=== PATIENT | female | born 1965 | race Caucasian/White ===

== ENCOUNTER 2021-02-22 17:23 | Emergency (ER) | payer BC ==
[2021-02-22] MEDS ORDERED: Sodium Chloride 0.9% 10 ML Syringe FLUSH PRN (17:44)
[2021-02-22] MEDS ORDERED: Metoprolol Tartrate 5 MG/5 ML SDV IVPUSH ONE (17:44)
[2021-02-22] MEDS ORDERED: Famotidine 20 MG/2 ML SDV IVPUSH ONE (17:44)
--- NOTE | 2021-02-22 17:44 | EDM.PDOC ---
ED HPI GENERAL MEDICAL PROBLEM - General Chief Complaint: General Stated Complaint: heart palpatations Time Seen by Provider: 02/22/21 17:35 Source of Information: Reports: Patient, Family (), Old Records ([facility] chart/EMR) History Limitations: Reports: No Limitations - History of Present Illness INITIAL COMMENTS - FREE TEXT/NARRATIVE: The patient was brought to the emergency room via private automobile by her for evaluation of intermittent dizziness associated with nonspecific nausea and irregular heartbeat since about 8 PM yesterday with heart rate in the 80s. 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 The patient denies any chest pain/pressure, heart flutter, orthostasis, orthopnea, diaphoresis, paresthesias, recent decreased exercise tolerance, or any other anginal-type symptoms. No recent history of abdominal pain, heartburn, emesis, diarrhea, melena, gross hematochezia, or any food intolerance, including fatty foods, etc.. She denies any gross hematuria, colic, or other UTI symptoms. The patient also denies any recent fever, cough, wheezing, dyspnea, etc.. She denies any current pain or discomfort. The patient denies any medication noncompliance or recent medication changes. Onset: Sudden Onset Date: 02/21/21 Onset Time: 20:00 Duration: Intermittent Location: Reports: Other (No pain) Quality: Reports: Same as Previous Episode Severity: Moderate Improves with: Reports: None Worsens with: Reports: None Context: Reports: Other (As above). Denies: Sick Contact, Trauma Associated Symptoms: Reports: Nausea/Vomiting (No emesis). Denies: Confusion, Chest Pain, Cough, Diaphoresis, Fever/Chills, Headaches, Loss of Appetite, Malaise, Rash, Seizure, Shortness of Breath, Syncope, Weakness Treatments [employer] DEVELOPER: Reports: Other (see below) (None) - Related Data Allergies Allergy/AdvReac Type Severity Reaction Status Date / Time No Known Allergies Allergy Verified 02/22/21 18:41 Home Meds: Home Meds Cholecalciferol (Vitamin D3) [Vitamin D3] 1,000 units PO DAILY 10/06/14 [History] Multivitamin [Multi-Vitamin Daily] 1 tab PO DAILY@1200 10/06/14 [History] Simvastatin 40 mg PO BEDTIME 10/06/14 [History] Denosumab [Prolia] 60 mg SUBCUT ASDIRECTED 06/19/17 [History] Gabapentin [Neurontin] 300 mg PO BEDTIME 08/26/20 [History] Gabapentin [Neurontin] 100 mg PO QAM 02/22/21 [History] Levothyroxine 112 mcg PO DAILY 02/22/21 [History] Metoprolol Tartrate [Lopressor] 12.5 mg PO DAILY #1 tab 02/22/21 [Rx] Metoprolol Tartrate [Lopressor] 25 mg PO QPM #1 tab 02/22/21 [Rx] Past Medical History HEENT History: Reports: Impaired Vision. Denies: Allergic Rhinitis, Cataract, Glaucoma, Hard of Hearing, Macular Degeneration, Otitis Media, Retinal Detachment Other HEENT History: Patient wears glasses. Cardiovascular History: Reports: Arrhythmia, High Cholesterol, Hypertension, Other (See Below). Denies: Aneurysm, Blood Clots/VTE/DVT, CAD, Cardiomyopathy, Heart Failure, Heart Murmur, OK, PTCA, PVD, Syncope Other Cardiovascular History: PSVT since 2014 requiring cardiac ablation as below. Additional history of intermittent bradycardia, PVCs, etc.. Hyperdynamic cardiac function by Cardiolite stress test on 02/19/2020. Respiratory History: Reports: COPD, Pulmonary Fibrosis. Denies: Asthma, Bronchitis, Recurrent, Intubation, Difficult, Intubation, Previous, PE, Pneumonia, Recurrent, Pneumothorax, Sleep Apnea, TB Gastrointestinal History: Reports: GERD. Denies: Bowel Obstruction, Celiac Disease, Chronic Constipation, Chronic Diarrhea, Colon Polyp, Diverticulosis, Fatty Liver, Fecal Incontinence, Gastritis, GI Bleed, Hepatitis, Hiatal Hernia, Inflammatory Bowel Disease, Irritable Bowel Syndrome, Jaundice, Pancreatitis, PUD Genitourinary History: Reports: None. Denies: Acute Renal Failure, Chronic Renal Insuffiency, Renal Calculus, Retention, Urinary, STD, Urinary Incontinence, UTI, Recurrent INSPECTOR INSULATION History: Reports: . Denies: Dysfunctional Uterine Bleeding, Endometriosis, Fibroids, Polycystic Ovaries, Spontaneous : 3 Para: 3 LMP (Approximate): Other (See Below) Other INSPECTOR INSULATION History: Menopause at age 43. Full term without complications during pregnancies or deliveries. Musculoskeletal History: Reports: Arthritis, Back Pain, Chronic, Fracture, Osteoarthritis, Osteoporosis, Other (See Below). Denies: Amputation, Gout, Neck Pain, Chronic, RA, SLE Other Musculoskeletal History: Manubrium fracture in November 2017. Left wrist fracture on 11/01/2016. Chronic low back pain with degenerative disc disease and mild scoliosis with previous epidural steroid injections. Right second toe fracture at about age 34. Neurological History: Reports: Headaches, Chronic, Migraines, Neuropathy, Peripheral. Denies: Alzheimers Disease, Cerebral Aneurysms, Concussion, CVA, Head Trauma, MS, Neuropathy, Diabetic, Parkinson's, Seizure, TIA, Vertigo Psychiatric History: Reports: None. Denies: Abuse, Victim of, ADD, ADHD, Addiction, Anxiety, Depression, Psych Hospitalization(s), PTSD, Suicide Attempt, Suicidal Ideation Endocrine/Metabolic History: Reports: Hypothyroidism, Osteopenia, Osteoporosis, Other (See Below). Denies: Diabetes, Gestational, Diabetes, Type I, Diabetes, Type II, Diabetes Mellitus, Type 3c, IDDM, Obesity/BMI 30+ Other Endocrine/Metabolic History: Mayelin's thyroiditis. Hematologic History: Reports: Anemia. Denies: Blood Transfusion(s), Iron Deficiency Immunologic History: Reports: None. Denies: AIDS, HIV, SLE Oncologic (Cancer) History: Reports: None. Denies: Basal Cell Carcinoma, Breast, Cervix, Colon, Hodgkin's Lymphoma, Leukemia, Lymphoma, Malignant Melanoma, Non-Hodgkin's Lymphoma, Ovarian, Squamous Cell Carcinoma, Thyroid, Uterine Dermatologic History: Reports: None. Denies: Eczema, Psoriasis - Infectious Disease History Infectious Disease History: Reports: Chicken Pox, Mumps, Shingles (Left lower lumbar region on 03/10/2012.). Denies: C-Difficile, Measles, Meningitis, Mononucleosis, MRSA, Novel Coronavirus (Moderna immunizations x2 in early 2020), Pertussis (Whooping Cough), Rheumatic Fever, Rubella, Scarlet Fever, TB, VRE - Past Surgical History Head Surgeries/Procedures: Reports: None HEENT Surgical History: Reports: Oral Surgery, Other (See Below). Denies: Adenoidectomy, Cataract Surgery, Eye Surgery, Laser Surgery, LASIK, Myringotomy w Tube(s), Naso-Sinus Surgery, Tonsillectomy Other HEENT Surgeries/Procedures: Mandibular Advancement in 1995. [place] teeth extraction x4 at age 17. Cardiovascular Surgical History: Reports: Cardiac Ablation, Varicose, Other (See Below) Other Cardiovascular Surgeries/Procedures: Cardiac ablation on 01/16/2018. Left sclerotherapy for varicose veins in about 1997. Respiratory Surgical History: Reports: None. Denies: Thoracentesis GI Surgical History: Reports: Colonoscopy, Other (See Below). Denies: Appendectomy, Cholecystectomy, EGD, Hernia, Abdominal, Hernia, Inguinal, Hernia Repair/Other, Polypectomy Other GI Surgeries/Procedures: Normal colonoscopy on 10/08/2014. Female Surgical History: Reports: Tubal Ligation, Other (See Below). Denies: Breast Biopsy, Section, D&C, LEEP, Oophorectomy, Salpingo-Oophorectomy Other Female Surgeries/Procedures: Bilateral tubal ligation at age 28. Endocrine Surgical History: Reports: None. Denies: Thyroid Biopsy Neurological Surgical History: Reports: None. Denies: C-Spine, Discectomy, Laminectomy, Lumbar Spine, Sacral Spine, Spinal Fusion, Thoracic Spine, Vertebroplasty Musculoskeletal Surgical History: Reports: None. Denies: Arthroscopic Procedure, Carpal Tunnel, Ganglion Cyst, Joint Replacement, ORIF, Shoulder Surgery Oncologic Surgical History: Reports: None Dermatological Surgical History: Reports: None - Past Imaging History Past Imaging History: Reports: CAT Scan (Right leg 08/11/2020. CTA of the chest on 11/21/2017 with manubrium fracture as above.), DEXA Scan (Last on 10/16/2019), MRI (Lumbar spine 08/09/2020 and 2006.), Stress Testing (Negative Cardiolite stress test on 02/19/2020 with ejection fraction of greater than 90%.), Ultrasound (Thyroid on 09/03/2017, 11/03/2013 and 10/29/2012.) Social & Family History - Family History Family Medical History: (LIVESTOCK FARM MANAGER and then I am not bending over for history medicines are on a little bit at [facility]) Cardiac: Reports: Afib, Arrhythmia, Cardiomyopathy, Heart Failure, Heart Murmur, Hypertension, Pacemaker, PVD/COD, Syncope, Other (See Below). Denies: Aneurysm, Blood Clots/VTE/DVT, CAD, High Cholesterol, OK Other Cardiac Family History: Mother with history of atrial fibrillation and CHF and pacemaker placement. Father with probable sick sinus syndrome and syncope requiring pacemaker. Mother with hypertension. Sister with benign heart murmur and unknown type of arrhythmia in her 20s. GI: Reports: Cholelithiasis, Other (See Below) Other GI Family History: Mother with cholelithiasis and fatal postoperative complications in her 70s. Endocrine/Metabolic: Reports: Diabetes, type II, Hypothyroidism, Other (See Below). Denies: Diabetes, Type I, Diabetes Mellitus, Type 3c, IDDM Other Endocrine/Metabolic Family History: Mother with hypothyroidism and AODM. Oncologic: Reports: Uterine, Other (See Below) Other Oncologic Family History: Mother with uterine cancer in her 60s. - Tobacco Use Tobacco Use Status *Q: Never Tobacco User Tobacco Use Within Last Twelve Months: No Used Tobacco, but Quit: No Smoking Cessation Information Provided To Patient: No Second Hand Smoke Exposure: No Second Hand Smoke Education Provided: No - Caffeine Use Caffeine Use: Reports: Coffee (2 cups 3 times per week), Soda (23 sodas per day). Denies: Energy Drinks (Any), Tea - Alcohol Use Alcohol Use History: Yes Days Per Week of Alcohol Use: 4 Number of Drinks Per Day: 1 Number of Drinks Per Day Comment: Usually beer. No previous DWIs, problems with alcohol abuse, etc. 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 ED EXAM, GENERAL - Physical Exam Exam: See Below Exam Limited By: No Limitations General Appearance: Alert, WD/WN, No Apparent Distress Eye Exam: Bilateral Eye: EOMI, Normal Inspection (Patient is wearing glasses. No vertigo or nystagmus.), PERRL Ears: Normal External Exam, Normal Canal, Hearing Grossly Normal, Normal TMs Nose: Normal Inspection, Normal Mucosa, No Blood Throat/Mouth: Normal Inspection, Normal Lips, Normal Teeth, Normal Gums, Normal Oropharynx, Normal Voice, No Airway Compromise. No: Dysphagia, Perioral Cyanosis Head: Atraumatic, Normocephalic. No: Facial Swelling, Facial Tenderness, Sinus Tenderness Neck: Normal Inspection, Supple, Non-Tender, Full Range of Motion. No: Carotid Bruit, Lymphadenopathy (L), Lymphadenopathy (R), Thyromegaly Respiratory/Chest: No Respiratory Distress, Lungs Clear, Normal Breath Sounds, No Accessory Muscle Use, Chest Non-Tender. No: Pleural Rub, Retractions Cardiovascular: Normal Peripheral Pulses, Regular Rate, Rhythm, No Edema, No Gallop, No JVD, No Murmur, No Rub. No: Gallop/S3, Gallop/S4, Extra Beats, Friction Rub Peripheral Pulses: 2+: Radial (L), Radial (R), Dorsalis Pedis (L), Dorsalis Pedis (R) GI/Abdominal: Normal Bowel Sounds, Soft, Non-Tender, No Organomegaly, No Distention, No Abnormal Bruit, No Mass. No: Guarding (Female) Exam: Deferred Rectal (Female) Exam: Deferred Back Exam: Normal Inspection, Full Range of Motion, Other (Scoliosis). No: CVA Tenderness (L), CVA Tenderness (R), Muscle Spasm Extremities: Normal Inspection, Normal Range of Motion, Non-Tender, No Pedal Edema, Normal Capillary Refill. No: Jessica's Sign Neurological: Alert, Oriented, CN II-XII Intact, Normal Cognition, Normal Gait, No Motor/Sensory Deficits Psychiatric: Normal Affect, Normal Mood Skin Exam: Warm, Dry, Intact, Normal Color, No Rash. No: Diaphoretic, Wound/Incision Lymphatic: No Adenopathy #1 Interpretation EKG Date: 02/22/21 Time: 18:24 Rhythm: NSR (With resolved previous borderline bradycardia) Rate (Beats/Min): 71 [place]: Normal (Left which is a change from previous neutral) P-Wave: Enlarged (Moderate diffuse biphasic P waves) QRS: Normal (0.10 seconds representing repolarization changesnew) ST-T: Normal (Stable T wave inversion lead V1 with new T wave inversion in lead III) QT: Normal [place]/PQ Interval: 0.19 seconds with mild poor R wave progression in the anterior leads Comparison: Change From Previous EKG (As above since Cardiolite stress test on 02/19/2020) EKG Interpretation Comments: 1. No acute ischemic changes 2. Left atrial enlargement 3. Repolarization changes Course - Vital Signs Last Recorded V/S: Last Vital Signs Temp 36.8 C 02/22/21 17:27 Pulse 65 02/22/21 18:15 Resp 16 02/22/21 18:15 BP 119/80 02/22/21 18:15 Pulse Ox 99 02/22/21 18:15 Vital Signs - 24 hr 02/22/21 02/22/21 02/22/21 17:27 17:44 18:09 Temperature [ 36.8 C Oral] Pulse, 72 Peripheral Pulse, 77 Peripheral [ Pulse Oximetry] Respiratory 20 Rate Blood Pressure 121/88 Blood Pressure 141/97 H [Right Upper Arm] O2 Sat by Pulse 95 Oximetry O2 Sat by Pulse 97 Oximetry [Room Air] 02/22/21 18:15 Temperature [ Oral] Pulse, Peripheral Pulse, 65 Peripheral [ Pulse Oximetry] Respiratory 16 Rate Blood Pressure Blood Pressure 119/80 [Right Upper Arm] O2 Sat by Pulse 99 Oximetry O2 Sat by Pulse Oximetry [Room Air] - Orders/Labs/Meds Orders: Active Orders 24 hr Category Date Time Status Cardiac Monitoring [RC] . DIRECTED Care 02/22/21 17:44 Active EKG Documentation Completion [RC] ASDIRECTED Care 02/22/21 17:44 Active Oxygen Therapy, ED [RC] PRN Care 02/22/21 17:44 Active Peripheral IV Care [RC] . DIRECTED Care 02/22/21 17:44 Active Pulse Oximetry [RC] CONTINUOUS Care 02/22/21 17:44 Active Up With Assistance [RC] PFP Care 02/22/21 17:44 Active Vital Signs [RC] PFP Care 02/22/21 17:44 Active Nothing per Oral Now Diet [DIET] Diet 02/22/21 Breakfast Active Chest 1V Frontal [CR] Stat Exams 02/22/21 17:44 Taken Sodium Chloride 0.9% [Saline Flush] Med 02/22/21 17:44 Active 10 ml FLUSH ASDIRECTED PRN Obtain Past Medical Record [OM.PC] Urgent Oth 02/22/21 17:44 Active Peripheral IV Insertion Adult [OM.PC] Stat Oth 02/22/21 17:44 Ordered Resuscitation Status Stat Resus Stat 02/22/21 17:44 Ordered Medication Orders Sodium Chloride (Sodium Chloride 0.9% 10 Ml Syringe) 10 ml FLUSH ASDIRECTED PRN PRN Reason: Keep Vein Open Last Admin: 02/22/21 18:09 Dose: 10 ml Documented by: MADYSON Labs: Laboratory Tests 02/22/21 02/22/21 02/22/21 Range/Units 18:00 18:00 18:00 WBC 6.5 (4.0-10.2) K/uL RBC 4.40 (3.77-5.09) M/uL Hgb 14.2 (11.7-15.5) g/dL Hct 42.5 (34.0-46.0) % MCV 96.6 D (84.0-98.0) fL MCH 32.3 (28.2-33.3) pg MCHC 33.4 (31.7-36.0) g/dL RDW 12.0 (11.2-14.1) % Plt Count 208 (150-350) K/uL Neut % (Auto) 52.0 (45.0-80.0) % Lymph % (Auto) 38.0 (10.0-50.0) % [place] % (Auto) 8.4 (2.0-14.0) % Eos % (Auto) 1.1 (0.0-5.0) % Baso % (Auto) 0.5 (0.0-2.0) % Neut # (Auto) 3.40 (1.40-7.00) K/uL Lymph # (Auto) 2.48 (0.50-3.50) K/uL [place] # (Auto) 0.55 (0.00-1.00) K/uL Eos # (Auto) 0.07 (0.00-0.50) K/uL Baso # (Auto) 0.03 (0.00-0.20) K/uL PT 9.9 (9.5-12.0) SEC INR 1.0 APTT 24.2 L (24.5-32.8) SEC D-Dimer, Quantitative < 100 (0-400) ng/mL Sodium (136-145) mmol/L Potassium (3.5-5.1) mmol/L Chloride (98-107) mmol/L Carbon Dioxide (21.0-32.0) mmol/L BUN (7-18) mg/dL Creatinine (0.51-1.17) mg/dL Est Cr Clr Drug Dosing Estimated GFR (MDRD) mL/min Glucose (70-99) mg/dL Lactic Acid (0.4-2.0) mmol/L Uric Acid (2.6-7.2) mg/dL Calcium (8.5-10.1) mg/dL Magnesium (1.8-2.4) mg/dL Total Bilirubin (0.2-1.0) mg/dL AST (15-37) U/L ALT (12-78) U/L Alkaline Phosphatase (46-116) IU/L Troponin I (0.000-0.056) ng/mL NT-Pro-B Natriuret Pep (0-125) pg/mL Total Protein (6.4-8.2) g/dL Albumin (3.4-5.0) g/dL TSH, Ultra Sensitive (0.358-3.740) mIU/mL 02/22/21 02/22/21 Range/Units 18:00 18:00 WBC (4.0-10.2) K/uL RBC (3.77-5.09) M/uL Hgb (11.7-15.5) g/dL Hct (34.0-46.0) % MCV (84.0-98.0) fL MCH (28.2-33.3) pg MCHC (31.7-36.0) g/dL RDW (11.2-14.1) % Plt Count (150-350) K/uL Neut % (Auto) (45.0-80.0) % Lymph % (Auto) (10.0-50.0) % [place] % (Auto) (2.0-14.0) % Eos % (Auto) (0.0-5.0) % Baso % (Auto) (0.0-2.0) % Neut # (Auto) (1.40-7.00) K/uL Lymph # (Auto) (0.50-3.50) K/uL [place] # (Auto) (0.00-1.00) K/uL Eos # (Auto) (0.00-0.50) K/uL Baso # (Auto) (0.00-0.20) K/uL PT (9.5-12.0) SEC INR APTT (24.5-32.8) SEC D-Dimer, Quantitative (0-400) ng/mL Sodium 145 (136-145) mmol/L Potassium 3.6 (3.5-5.1) mmol/L Chloride 108 H (98-107) mmol/L Carbon Dioxide 24.0 (21.0-32.0) mmol/L BUN 17 (7-18) mg/dL Creatinine 0.85 (0.51-1.17) mg/dL Est Cr Clr Drug Dosing TNP Estimated GFR (MDRD) > 60 mL/min Glucose 148 H (70-99) mg/dL Lactic Acid 1.3 (0.4-2.0) mmol/L Uric Acid 5.0 (2.6-7.2) mg/dL Calcium 9.0 (8.5-10.1) mg/dL Magnesium 1.9 (1.8-2.4) mg/dL Total Bilirubin 0.3 (0.2-1.0) mg/dL AST 20 (15-37) U/L ALT 34 (12-78) U/L Alkaline Phosphatase 63 (46-116) IU/L Troponin I 0.000 (0.000-0.056) ng/mL NT-Pro-B Natriuret Pep 65 (0-125) pg/mL Total Protein 7.0 (6.4-8.2) g/dL Albumin 3.9 (3.4-5.0) g/dL TSH, Ultra Sensitive 1.289 (0.358-3.740) mIU/mL Meds: Medications Generic Name Dose Route Start Last Admin Trade Name Freq PRN Reason Stop Dose Admin Sodium Chloride 10 ml 02/22/21 17:44 02/22/21 18:09 Sodium Chloride 0.9% 10 Ml Syringe FLUSH 10 ml ASDIRECTED PRN Administration Keep Vein Open Discontinued Medications Generic Name Dose Route Start Last Admin Trade Name Freq PRN Reason Stop Dose Admin Famotidine 40 mg 02/22/21 17:44 02/22/21 18:10 Famotidine 20 Mg/2 Ml Sdv IVPUSH 02/22/21 17:45 40 mg ONETIME ONE Administration Metoprolol Tartrate 2.5 mg 02/22/21 17:44 02/22/21 18:09 Metoprolol Tartrate 5 Mg/5 Ml Sdv IVPUSH 02/22/21 17:45 2.5 mg ONETIME ONE Administration - Radiology Interpretation Free Text/Narrative:: gambling monitor shows normal sinus rhythm with average heart rate in the 60s to 90s with no ectopy or arrhythmia Chest x-ray, portable, shows evidence of borderline pulmonary obstructive disease with no cardiomegaly, CHF, pulmonary infiltrates, pneumothorax, etc. Departure - Departure Time of Disposition: 19:11 Disposition: Home, Self-Care 01 Condition: Good Clinical Impression: Hypothyroidism (acquired), Peptic reflux disease Arrhythmia Qualifiers: Arrhythmia type: other cardiac arrhythmia Qualified Code(s): I49.8 - Other specified cardiac arrhythmias Hyperlipidemia Qualifiers: Hyperlipidemia type: unspecified Qualified Code(s): E78.5 - Hyperlipidemia, unspecified Osteoarthritis Qualifiers: Osteoarthritis location: multiple joints Osteoarthritis type: primary Qualified Code(s): M89.49 - Other hypertrophic osteoarthropathy, multiple sites Hypertension Qualifiers: Hypertension type: essential hypertension Qualified Code(s): I10 - Essential (primary) hypertension - Discharge Information *PRESCRIPTION DRUG MONITORING PROGRAM REVIEWED*: Not Applicable *COPY OF PRESCRIPTION DRUG MONITORING REPORT IN PATIENT [place]: Not Applicable Prescriptions: Metoprolol Tartrate [Lopressor] 25 mg PO QPM #1 tab Metoprolol Tartrate [Lopressor] 12.5 mg PO DAILY #1 tab Instructions: Palpitations Referrals: Nicki Mary NP [Primary Care Provider] - Forms: ED Department Discharge Additional Instructions: 1. Followup with your regular provider in 7-10 days as directed. Bring these discharge instructions with you to that visit. 2. Start your change/increased Lopressor regimen tomorrow evening secondary to medications given in the emergency room and try to take this medication 12 hours apart as discussed 3. Immediately after this visit verify that your cellular telephone's voicemail has been activated and is empty. Also verify that your home telephone's answering machine is operating properly and has space to receive messages. Note that it is sometimes necessary for us to be able to contact you at a later date to discuss your medical care. 4. Please remember that we are ALWAYS here for you and want to answer any questions you may have. Feel free to call the hospital any time and we call you back SONY. Sepsis Event Note (ED) - Focused Exam Vital Signs: Vital Signs Temp Pulse Pulse Resp BP BP Pulse Ox 02/22/21 18:15 65 16 119/80 99 02/22/21 18:09 72 121/88 02/22/21 17:44 02/22/21 17:27 36.8 C 77 20 141/97 H 95 Pulse Ox 02/22/21 18:15 02/22/21 18:09 02/22/21 17:44 97 02/22/21 17:27 - Problem List & Annotations (1) Arrhythmia SNOMED Code(s): 029285634 Code(s): I49.9 - CARDIAC ARRHYTHMIA, UNSPECIFIED Status: Acute Priority: High Current Visit: Yes Onset Date: 02/21/21 Annotation/Comment:: Low-dose IV Lopressor given to the patient. Chest pain protocol was not initiated secondary to lack of anginal type symptoms. Slow increase of her current Lopressor therapy. Arrhythmia could not be documented during today's extensive ER evaluation. No previous history of intermittent bradycardia, PSVT, cardiac ablation, etc. as above. Close follow-up by regular provider. Consider Holter monitor, event monitor, etc. depending on her clinical course. Note previous negative Cardiolite stress test as above with no current chest pain or true anginal type symptoms. Qualifiers: Arrhythmia type: other cardiac arrhythmia Qualified Code(s): I49.8 - Other specified cardiac arrhythmias (2) Hypothyroidism (acquired) SNOMED Code(s): 577838229 Code(s): E03.9 - HYPOTHYROIDISM, UNSPECIFIED Status: Chronic Priority: Medium Current Visit: Yes Annotation/Comment:: TSH normal today. Currently under therapy. Consider free T3, free T4, etc. depending on her clinical course and/or if arrhythmia becomes a significant issue. Note previous history of Mayelin's thyroiditis (3) Hyperlipidemia SNOMED Code(s): 77968278 Code(s): E78.5 - HYPERLIPIDEMIA, UNSPECIFIED Status: Chronic Current Visit: Yes Annotation/Comment:: Currently under therapy. Mildly elevated random glucose level with no history of diabetes mellitus. Consider glycosylated hemoglobin by regular providers depending on her clinical course. Qualifiers: Hyperlipidemia type: unspecified Qualified Code(s): E78.5 - Hyperlipidemia, unspecified (4) Peptic reflux disease SNOMED Code(s): 699797928 Code(s): K21.9 - GASTRO-ESOPHAGEAL REFLUX DISEASE WITHOUT ESOPHAGITIS Status: Chronic Priority: Medium Current Visit: Yes Annotation/Comment:: The patient discontinued Prilosec therapy on her own a couple of months ago with only occasional OTC antacid use at this time. Otherwise recently nonproblematic with high-dose IV Pepcid given in the emergency room as GI prophylaxis. (5) Hypertension SNOMED Code(s): 52703330 Code(s): I10 - ESSENTIAL (PRIMARY) HYPERTENSION Status: Chronic Priority: Medium Current Visit: Yes Annotation/Comment:: Stable in the emergency room. Improved prior to discharge after IV Lopressor given as above. Qualifiers: Hypertension type: essential hypertension Qualified Code(s): I10 - Essential (primary) hypertension (6) Osteoarthritis SNOMED Code(s): 333453890 Code(s): M19.90 - UNSPECIFIED OSTEOARTHRITIS, UNSPECIFIED SITE Status: Chronic Priority: Medium Current Visit: Yes Annotation/Comment:: Stable by history. Qualifiers: Osteoarthritis location: multiple joints Osteoarthritis type: primary Qualified Code(s): M89.49 - Other hypertrophic osteoarthropathy, multiple sites - Problem List Review Problem List Initiated/Reviewed/Updated: Yes - My Orders Last 24 Hours: My Active Orders 02/22/21 Breakfast Nothing per Oral Now Diet [DIET] 02/22/21 17:44 Cardiac Monitoring [RC] . DIRECTED EKG Documentation Completion [RC] ASDIRECTED Oxygen Therapy, ED [RC] PRN Peripheral IV Care [RC] . DIRECTED Pulse Oximetry [RC] CONTINUOUS Up With Assistance [RC] PFP Vital Signs [RC] PFP Chest 1V Frontal [CR] Stat Sodium Chloride 0.9% [Saline Flush] 10 ml FLUSH ASDIRECTED PRN Obtain Past Medical Record [OM.PC] Urgent Peripheral IV Insertion Adult [OM.PC] Stat Resuscitation Status Stat - Assessment/Plan Last 24 Hours: My Active Orders 02/22/21 Breakfast Nothing per Oral Now Diet [DIET] 02/22/21 17:44 Cardiac Monitoring [RC] . DIRECTED EKG Documentation Completion [RC] ASDIRECTED Oxygen Therapy, ED [RC] PRN Peripheral IV Care [RC] . DIRECTED Pulse Oximetry [RC] CONTINUOUS Up With Assistance [RC] PFP Vital Signs [RC] PFP Chest 1V Frontal [CR] Stat Sodium Chloride 0.9% [Saline Flush] 10 ml FLUSH ASDIRECTED PRN Obtain Past Medical Record [OM.PC] Urgent Peripheral IV Insertion Adult [OM.PC] Stat Resuscitation Status Stat Assessment:: As above Plan: As above. Extensive precautions were given to the patient and her , who are in agreement with the treatment plan. See Patient Instructions for further treatment and plan.
[2021-02-22 18:28] LABS: CHLORIDE,CL 108 mmol/L (98-107); SODIUM,NA 145 mmol/L (136-145)
[2021-02-22 18:54] LABS: PTT,PARTIAL THROMBOPLSTIN TIME 24.2 SEC (24.5-32.8)
[2021-02-22 21:38] VITALS: BP 119/78; PULSE 59
== END 2021-02-22 19:10 | disposition home or self-care (01) ==
LOC: SUPCPDRO 17:23 → LL.ED 17:23
DX: I49.8 Other specified cardiac arrhythmias (principal); E78.5 Hyperlipidemia, unspecified; E03.9 Hypothyroidism, unspecified; K21.9 Gastro-esophageal reflux disease without esophagitis; M89.49 Other hypertrophic osteoarthropathy, multiple sites; I10 Essential (primary) hypertension; J44.9 Chronic obstructive pulmonary disease, unspecified; Z79.899 Other long term (current) drug therapy
CPT/HCPCS: 36415; 71045; 80053; 83605; 83735; 83880; 84443; 84484; 84550; 85025; 85379; 85610; 85730; 93005; 93010; 96374; 96375; 99284; 99284-25; J3490

== ENCOUNTER 2023-11-08 10:35 | Day surgery (SDC) | payer BC ==
[~2023-11-08 10:35] MED LIST: Midazolam 1 MG/ML 2 ML SDV ONE; Propofol 200 MG/20 ML SDV ONE
[2023-11-08] MEDS ORDERED: Sodium Chloride 0.9% 10 ML Syringe FLUSH PRN (11:00)
[2023-11-08] MEDS: Lactated Ringers 1,000 ML IV SCH (11:37)
[2023-11-08] MEDS ORDERED: Glycopyrrolate 0.2 MG/ML SDV IVPUSH ONE (12:20)
[2023-11-08] MEDS ORDERED: Lidocaine 2% 5 ML SDV ONE (12:20)
[2023-11-08 13:59] VITALS: BP 118/70; PULSE 50
== END 2023-11-08 13:40 | disposition home or self-care (01) ==
LOC: LL.SDS 10:35
PROVIDERS: ATTEND Surgery
DX: Z12.11 Encounter for screening for malignant neoplasm of colon (principal); K21.00 Gastro-esophageal reflux disease with esophagitis, without bleeding; K44.9 Diaphragmatic hernia without obstruction or gangrene; K64.4 Residual hemorrhoidal skin tags; K64.8 Other hemorrhoids; M35.3 Polymyalgia rheumatica; I47.10 Supraventricular tachycardia, unspecified; E03.9 Hypothyroidism, unspecified; E78.5 Hyperlipidemia, unspecified; Z86.010 Personal history of colon polyps; Z79.899 Other long term (current) drug therapy; Z79.82 Long term (current) use of aspirin; Z79.890 Hormone replacement therapy; Z80.0 Family history of malignant neoplasm of digestive organs
CPT/HCPCS: 00813; 43239; G0121; J2250; J2704; J3490; J7120